=== PATIENT | male | born 1985 | race American Indian/Alaskan Native ===

== ENCOUNTER 2016-12-05 21:06 | Emergency (ER) | payer MEDICAID, OTHER ==
[2016-12-05 21:19] VITALS: BP 158/82
--- NOTE | 2016-12-05 21:38 | EDM.PDOC ---
ED HPI Skin/Rash - General Chief Complaint: Skin Complaint Stated Complaint: BOIL ON LEFT BACK SIDE Time Seen by Provider: 12/05/16 21:31 Source: Reports: Patient, Family, RN notes reviewed History Limitations: Reports: No limitations - History of Present Illness INITIAL COMMENTS - FREE TEXT/NARRATIVE: 31-year-old gentleman presents to the emergency department a complaint of a red painful area of his buttocks sent this for a couple days he denies any fever difficulty with bowel movements - Related Data Allergies Allergy/AdvReac Type Severity Reaction Status Date / Time No Known Allergies Allergy Verified 12/05/16 21:13 Home Meds: Ambulatory Orders Medication Instructions Recorded Confirmed NK [No Known Home Meds] 12/05/16 12/05/16 Past Medical History Musculoskeletal History: Reports: Fracture - Infectious Disease History Infectious Disease History: Reports: Chicken pox Social & Family History - Tobacco Use Smoking Status *Q: Never Smoker Second Hand Smoke Exposure: No - Caffeine Use Caffeine Use: Reports: Energy drinks, Soda - Alcohol Use Days Per Week of Alcohol Use: 0 - Recreational Drug Use Recreational Drug Use: No ED ROS GENERAL - Review of Systems Review Of Systems: See Below Constitutional: Denies: fever Respiratory: Reports: No Symptoms Cardiovascular: Reports: No symptoms Skin: Reports: rash, erythema. Denies: wound ED EXAM, SKIN/RASH Exam: See Below Text/Narrative:: examination of the integument system focused on the gluteal cleft there is an erythematous area approximately size of a softball I cannot appreciate any collection or fluctuant area it is firm it is warm to the touch Exam Limited By: No limitations General Appearance: alert, WD/WN, no apparent distress Course - Vital Signs Last Recorded V/S: Last Vital Signs Temp 99.3 F 12/05/16 21:24 Pulse 96 12/05/16 21:24 Resp 18 12/05/16 21:24 BP 158/82 H 12/05/16 21:24 Pulse Ox 96 12/05/16 21:24 Departure - Departure Time of Disposition: 21:37 Disposition: Home, Self-Care 01 Condition: good Clinical Impression: Boil of buttock Forms: ED Department Discharge Additional Instructions: take full course of antibiotics, if a period develops with drainage that is a good candidate for incision, please return to your primary care or the emergency department for further treatment - Assessment/Plan Plan: Assessment Acuity = acute Site and laterality = Boil buttocks Etiology = suspicious for bacterial cause Manifestations = pain Location of injury = home Lab values = none Plan elected to treat empirically Bactrim DS one tablet by mouth twice a day x10 days debt management counselor him on the possibility of incision and drainage he should try to do warm sitz bath Patient was in agreement with the plan all questions were answered, they were instructed to return to the emergency department or call for worsening symptoms. This note was dictated using [employer] voice recognition software please call with any questions.
[2016-12-05] MEDS ORDERED: Sulfamethoxazole/Trimethoprim 800-160 MG Tab PO ONE (21:50)
== END 2016-12-05 22:08 | disposition home or self-care (01) ==
LOC: JP.ED 21:06
DX: L02.32 Furuncle of buttock (principal)
CPT/HCPCS: 99283; A9270

== ENCOUNTER 2019-10-29 17:05 | Emergency (ER) | payer MEDICAID ==
[2019-10-29 17:17] VITALS: BP 146/96; PULSE 82
[2019-10-29] MEDS ORDERED: Alum Hydrox/Mag Hydrox/Simeth 15 ML, Lidocaine 2% 15 ML PO ONE ×2 (17:34)
--- NOTE | 2019-10-29 17:39 | EDM.PDOC ---
<Saira Rodriguez - Last Filed: 10/29/19 17:34> ED HPI GENERAL MEDICAL PROBLEM - General Chief Complaint: Abdominal Pain Stated Complaint: ABDOMINAL PAIN Time Seen by Provider: 10/29/19 17:34 Source of Information: Reports: Patient History Limitations: Reports: No Limitations - History of Present Illness INITIAL COMMENTS - FREE TEXT/NARRATIVE: pt started on having pain in the epigastruic area. He has been mildly nauseated. He has not vomited. Onset: Other ( started . ) Duration: Hour(s): Location: Reports: Abdomen Associated Symptoms: Reports: Nausea/Vomiting Epigastric Pain Score (Numeric/FACES): 4 - Related Data Allergies Allergy/AdvReac Type Severity Reaction Status Date / Time No Known Allergies Allergy Verified 12/05/16 21:13 Home Meds: Home Meds NK [No Known Home Meds] 12/05/16 [History] Past Medical History - Past Health History Medical/Surgical History: Denies Medical/Surgical History Musculoskeletal History: Reports: Fracture - Infectious Disease History Infectious Disease History: Reports: Chicken Pox Social & Family History - Tobacco Use Smoking Status *Q: Never Smoker - Caffeine Use Caffeine Use: Reports: Energy Drinks, Soda - Recreational Drug Use Recreational Drug Use: No ED ROS GENERAL - Review of Systems Review Of Systems: See Below Constitutional: Reports: No Symptoms HEENT: Reports: No Symptoms Respiratory: Reports: No Symptoms Cardiovascular: Reports: No Symptoms Endocrine: Reports: No Symptoms GI/Abdominal: Reports: Abdominal Pain, Other (pt has pain in the epigastric area and it just won,t go away. He has not vomited. He has been nauseated. Eating seemes to cause pressure and make him more uncomfortablwe. ) : Reports: No Symptoms Musculoskeletal: Reports: No Symptoms Skin: Reports: No Symptoms Neurological: Reports: No Symptoms ED EXAM, GI/ABD - Physical Exam Text/Narrative:: pt arrived with pain in the epigastric area. This started . He states he can not think of anything that started it. Exam Limited By: No Limitations General Appearance: Alert, Moderate Distress Ears: Normal TMs Nose: Normal Inspection Throat/Mouth: Normal Inspection Head: Atraumatic Neck: Normal Inspection Respiratory/Chest: No Respiratory Distress Cardiovascular: Regular Rate, Rhythm GI/Abdominal Exam: Other (mild epigastric tenderness) (Male) Exam: Deferred Rectal (Males) Exam: Deferred Back Exam: Normal Inspection Extremities: Normal Inspection Neurological: Alert, Oriented, Normal Cognition Course - Vital Signs Last Recorded V/S: Last Vital Signs Temp 36.8 C 10/29/19 17:15 Pulse 82 10/29/19 17:15 Resp 16 10/29/19 17:15 BP 146/96 H 10/29/19 17:15 Pulse Ox 96 10/29/19 17:15 - Orders/Labs/Meds Labs: Laboratory Tests 10/29/19 10/29/19 Range/Units 17:56 17:56 WBC 8.0 (4.5-11.0) K/uL RBC 5.25 (4.30-5.90) M/uL Hgb 14.4 (12.0-15.0) g/dL Hct 44.0 (40.0-54.0) % MCV 84 (80-98) fL MCH 27 (27-31) pg MCHC 33 (32-36) % Plt Count 305 (150-400) K/uL Neut % (Auto) 58 (36-66) % Lymph % (Auto) 26 (24-44) % [place] % (Auto) 11 H (2-6) % Eos % (Auto) 5 H (2-4) % Baso % (Auto) 0 (0-1) % Sodium 143 (140-148) mmol/L Potassium 3.5 L (3.6-5.2) mmol/L Chloride 103 (100-108) mmol/L Carbon Dioxide 28 (21-32) mmol/L Anion Gap 15.5 H (5.0-14.0) mmol/L BUN 14 (7-18) mg/dL Creatinine 1.0 (0.8-1.3) mg/dL Est Cr Clr Drug Dosing 122.16 mL/min Estimated GFR (MDRD) > 60 (>60) Glucose 101 (74-106) mg/dL Calcium 8.8 (8.5-10.1) mg/dL Total Bilirubin 0.1 L (0.2-1.0) mg/dL AST 23 (15-37) U/L ALT 42 (12-78) U/L Alkaline Phosphatase 103 (46-116) U/L Total Protein 7.6 (6.4-8.2) g/dL Albumin 3.9 (3.4-5.0) g/dL Globulin 3.7 H (2.3-3.5) g/dL Albumin/Globulin Ratio 1.1 L (1.2-2.2) Lipase 211 (73-393) U/L Meds: Medications Discontinued Medications Generic Name Dose Route Start Last Admin Trade Name Aram PRN Reason Stop Dose Admin Al Hydroxide/Mg Hydroxide 15 0 ml 10/29/19 17:34 10/29/19 17:37 ml/ Lidocaine HCl 15 ml PO 10/29/19 17:35 30 ml ONETIME ONE Administration Departure - Departure Disposition: Home, Self-Care 01 Clinical Impression: Gastritis Qualifiers: Gastritis type: unspecified gastritis Chronicity: acute Gastritis bleeding: without bleeding Qualified Code(s): K29.00 - Acute gastritis without bleeding - Discharge Information Instructions: Gastritis, Adult, [id number] Referrals: PCP,None [Primary Care Provider] - Forms: ED Department Discharge Additional Instructions: Take famotidine 40 mg at bedtime until gone. Take acetaminophen up to 1000 mg every 6 hrs as needed for pain relief. You may use Maalox as needed, best time is after eating. F/U with your doctor in the clinic edil. ? Wednesday. Avoid: ibuprofen, Aleve, aspirin, alcohol, carbonated beverages or tobacco products. Sepsis Event Note - Focused Exam Vital Signs: Vital Signs Temp Pulse Resp BP Pulse Ox 10/29/19 17:15 36.8 C 82 16 146/96 H 96 Date Exam was Performed: 10/29/19 Time Exam was Performed: 17:34 <Gilson Reese - Last Filed: 10/29/19 18:26> ED EXAM, GI/ABD - Physical Exam Exam: See Below Departure - Departure Time of Disposition: 18:22 Condition: Fair - Discharge Information *PRESCRIPTION DRUG MONITORING PROGRAM REVIEWED*: No *COPY OF PRESCRIPTION DRUG MONITORING REPORT IN PATIENT MANDY: No Sepsis Event Note - Focused Exam Date Exam was Performed: 10/29/19 Time Exam was Performed: 18:22
[2019-10-29] MEDS ORDERED: Famotidine 20 MG Tab PO ONE (18:23)
== END 2019-10-29 18:40 | disposition home or self-care (01) ==
LOC: JP.ED 17:05
DX: K29.00 Acute gastritis without bleeding (principal)
CPT/HCPCS: 36415; 80053; 83690; 85025; 99284; A9270; 99283

== ENCOUNTER 2020-05-22 06:28 | Emergency (ER) | payer MEDICAID ==
[2020-05-22 07:04] VITALS: BP 154/91; PULSE 76
--- NOTE | 2020-05-22 07:11 | EDM.PDOC ---
ED HPI GENERAL MEDICAL PROBLEM - General Chief Complaint: Abdominal Pain Stated Complaint: nausa STOMACH PAIN Time Seen by Provider: 05/22/20 07:04 Source of Information: Reports: Patient, RN Notes Reviewed History Limitations: Reports: No Limitations - History of Present Illness INITIAL COMMENTS - FREE TEXT/NARRATIVE: 34-year-old male presents emergency department a complaint of epigastric pain, he states his had it for the last couple of weeks it just is not improving he does have a known history of gastritis has been on omeprazole without any relief, had nausea this morning no vomiting no history of abdominal surgeries is passing gas with normal bowel movements Abdomen Pain Score (Numeric/FACES): 6 - Related Data Allergies Allergy/AdvReac Type Severity Reaction Status Date / Time sulfamethoxazole Allergy Facial Verified 05/22/20 06:42 [From ] Swelling trimethoprim [From ] Allergy Facial Verified 05/22/20 06:42 Swelling Home Meds: Home Meds Omeprazole 40 mg PO ACBREAKFAST 05/22/20 [History] Past Medical History Gastrointestinal History: Reports: Gastritis Musculoskeletal History: Reports: Fracture Neurological History: Reports: Migraines - Infectious Disease History Infectious Disease History: Reports: Chicken Pox Social & Family History - Tobacco Use Smoking Status *Q: Never Smoker - Caffeine Use Caffeine Use: Reports: Soda - Recreational Drug Use Recreational Drug Use: No ED ROS GENERAL - Review of Systems Review Of Systems: See Below Constitutional: Reports: No Symptoms Respiratory: Reports: No Symptoms Cardiovascular: Reports: No Symptoms GI/Abdominal: Reports: Abdominal Pain, Flatus, Nausea. Denies: Constipation, Diarrhea, Vomiting ED EXAM, GI/ABD - Physical Exam Exam: See Below Exam Limited By: No Limitations General Appearance: Alert, WD/WN, No Apparent Distress Respiratory/Chest: No Respiratory Distress GI/Abdominal Exam: Normal Bowel Sounds, Soft, No Organomegaly, No Distention, No Abnormal Bruit, Tender (Epigastric region) Course - Vital Signs Last Recorded V/S: Last Vital Signs Temp 97.6 F 05/22/20 06:39 Pulse 76 05/22/20 06:39 Resp 16 05/22/20 06:39 BP 154/91 H 05/22/20 06:39 Pulse Ox 97 05/22/20 06:39 - Orders/Labs/Meds Labs: Laboratory Tests 05/22/20 05/22/20 Range/Units 07:08 07:18 WBC 6.4 (4.5-11.0) K/uL RBC 5.19 (4.30-5.90) M/uL Hgb 14.0 (12.0-15.0) g/dL Hct 43.6 (40.0-54.0) % MCV 84 (80-98) fL MCH 27 (27-31) pg MCHC 32 (32-36) % Plt Count 327 (150-400) K/uL Neut % (Auto) 58 (36-66) % Lymph % (Auto) 23 L (24-44) % [place] % (Auto) 12 H (2-6) % Eos % (Auto) 7 H (2-4) % Baso % (Auto) 0 (0-1) % Sodium 141 (140-148) mmol/L Potassium 3.9 (3.6-5.2) mmol/L Chloride 105 (100-108) mmol/L Carbon Dioxide 28 (21-32) mmol/L Anion Gap 8.4 (5.0-14.0) mmol/L BUN 16 (7-18) mg/dL Creatinine 1.1 (0.8-1.3) mg/dL Est Cr Clr Drug Dosing 111.05 mL/min Estimated GFR (MDRD) > 60 (>60) Glucose 111 H (74-106) mg/dL Calcium 9.3 (8.5-10.1) mg/dL Total Bilirubin 0.2 D (0.2-1.0) mg/dL AST 30 (15-37) U/L ALT 45 (12-78) U/L Alkaline Phosphatase 106 (46-116) U/L Troponin I < 0.017 (0.000-0.056) ng/mL Total Protein 7.9 (6.4-8.2) g/dL Albumin 4.1 (3.4-5.0) g/dL Globulin 3.8 H (2.3-3.5) g/dL Albumin/Globulin Ratio 1.1 L (1.2-2.2) Lipase 228 (73-393) U/L Meds: Medications Discontinued Medications Generic Name Dose Route Start Last Admin Trade Name Freq PRN Reason Stop Dose Admin Al Hydroxide/Mg Hydroxide 15 0 ml 05/22/20 07:58 09/02/20 08:04 ml/ Lidocaine HCl 15 ml PO 05/22/20 07:59 30 ml ONETIME ONE Administration Departure - Departure Time of Disposition: 08:26 Disposition: Home, Self-Care 01 Condition: Fair Clinical Impression: Abdominal pain Qualifiers: Abdominal location: epigastric Qualified Code(s): R10.13 - Epigastric pain - Discharge Information Instructions: Upper Endoscopy, Adult, Care After, Abdominal Pain, Adult, [id number] Referrals: PCP,None [Primary Care Provider] - Forms: ED Department Discharge Additional Instructions: Increase your omeprazole to twice a day dosing, the outpatient surgery department will contact you for your appointment time with Dr. Dominguez to do the EGD, call or return to the emergency department worsening of symptoms Sepsis Event Note (ED) - Evaluation Sepsis Screening Result: No Definite Risk - Focused Exam Vital Signs: Vital Signs Temp Pulse Resp BP Pulse Ox 05/22/20 06:39 97.6 F 76 16 154/91 H 97 - Assessment/Plan Plan: Assessment Acuity = acute Site and laterality = epigastric abdominal pain Etiology = probable gastroesophageal reflux disease Manifestations = none Location of injury = Home Lab values = CBC, CMP, troponin, lipase all within normal limits Plan He had some relief with a GI cocktail provided in the emergency department call discussed case with Dr. Dominguez general surgery at 820 recommended EGD which was set up for tomorrow morning with Dr. Dominguez he will increase his omeprazole to twice a day dosing This note was dictated using [employer] voice recognition software please call with any questions on syntax or grammar.
[2020-05-22] MEDS ORDERED: Alum Hydrox/Mag Hydrox/Simeth 15 ML, Lidocaine 2% 15 ML PO ONE ×2 (07:58)
== END 2020-05-22 08:34 | disposition home or self-care (01) ==
LOC: JP.ED 06:28
DX: R10.13 Epigastric pain (principal); Z88.2 Allergy status to sulfonamides; Z88.1 Allergy status to other antibiotic agents
CPT/HCPCS: 36415; 80053; 83690; 84484; 85025; 99284; A9270

== ENCOUNTER 2020-05-23 08:14 | Day surgery (SDC) | payer MEDICAID ==
[2020-05-23] MEDS ORDERED: Propofol 200 MG/20 ML SDV ONE (08:39)
[2020-05-23] MEDS ORDERED: Midazolam 1 MG/ML 2 ML SDV ONE (08:39)
[2020-05-23] MEDS ORDERED: fentaNYL 100 MCG/2 ML SDV ONE (08:39)
[2020-05-23] MEDS ORDERED: Dextrose 5%-Lactated Ringers 1,000 ML IV SCH (09:00)
[2020-05-23] MEDS ORDERED: Glycopyrrolate 0.2 MG/ML 2 ML SDV IVPUSH ONE (10:00)
[2020-05-23] MEDS ORDERED: Pantoprazole 40 MG Vial IVPUSH ONE (12:04)
[2020-05-23 13:47] VITALS: PULSE 90
[2020-05-23 13:48] VITALS: BP 130/90
--- NOTE | 2020-05-28 15:23 | OR ---
DATE OF PROCEDURE: 05/23/2020 SURGEON: Rafy Dominguez MD PREOPERATIVE DIAGNOSES: Epigastric discomfort and nausea. POSTOPERATIVE DIAGNOSES: Epigastric pain and nausea associated with very mild distal gastritis. OPERATIVE PROCEDURE: Esophagogastroduodenoscopy with antral biopsies for CLOtest. ANESTHESIA: IV sedation. INDICATIONS FOR PROCEDURE: The patient presents with some ongoing epigastric discomfort. In the past, he has had some slight episodes of heartburn as well. Presently, he is on omeprazole 20 mg a day. Plan is to proceed with upper GI endoscopy with biopsies as indicated. Potential risks including bleeding and perforation were discussed, and the patient wishes to proceed. DETAILS OF PROCEDURE: The patient was taken to the operating room and placed in a left lateral decubitus position. IV sedation was administered after which the upper GI endoscope was passed orally through the length of the esophagus and into the stomach with retroflexion view of the fundus and then through the pyloric channel and into the proximal duodenum. FINDINGS: Included normal hypopharynx, larynx, upper esophageal sphincter, and esophageal body. At the EG junction, no significant hiatal hernia was present. There was no gross inflammation at esophagogastric junction. As one entered the stomach, small amount of retained bile was present. In the antrum, there was a very mild diffuse distal gastritis that was not associated with any erosions or ulcers and it was extremely mild. The pyloric channel and junction of the third and fourth portions of the duodenum were then examined, and no additional pathology was seen. At this point, biopsies were obtained from the antrum and sent for CLOtest for H. pylori. Minimal bleeding from the biopsy site was seen, and the procedure was then concluded. The patient's symptoms do not appear to be well explained by the present findings. Given this, we will schedule the patient for CCK-stimulated HIDA scan to evaluate the gallbladder function. This will be set up for tomorrow. Otherwise, we will maximize the patient's proton pump inhibitor treatment over the next few days and give him Protonix 40 mg IV in the recovery room and then Protonix 40 mg daily and have him stop the omeprazole after being on liquid diet for 3 days. We will see the patient back in the clinic on 05/29/2020 for followup, discussion of the situation based on the updated findings at that date. Rafy Dominguez MD /[id number]
== END 2020-05-23 14:13 | disposition home or self-care (01) ==
LOC: JP.SDS 08:14
PROVIDERS: ATTEND Surgery
DX: K29.70 Gastritis, unspecified, without bleeding (principal); K21.9 Gastro-esophageal reflux disease without esophagitis; Z01.812 Encounter for preprocedural laboratory examination; Z20.828 Contact with and (suspected) exposure to other viral communicable diseases
CPT/HCPCS: 43239; 87081; 87635; C9113; J2250; J2704; J3010; J3490; J7121; U0002

== ENCOUNTER 2020-07-04 08:31 | Day surgery (SDC) | payer MEDICAID, OTHER ==
[~2020-07-04 08:31] MED LIST: Acetaminophen 500 MG Tab PO ONE; Bupivacaine 0.5% 50 ML MDV ONE; Dexamethasone 4 MG/ML SDV ONE; Glycopyrrolate 0.2 MG/ML 5 ML MDV ONE; Lidocaine 1% with EPINEPHrine 1:100,000 50 ML MDV ONE; Neostigmine Methylsulfate 1 MG/ML 5 ML Syringe ONE; Ondansetron 4 MG/2 ML SDV ONE; Propofol 200 MG/20 ML SDV ONE; Rocuronium 50 MG/5 ML Vial ONE; Succinylcholine 200 MG/10 ML MDV ONE; fentaNYL 250 MCG/5 ML SDV ONE
[2020-07-04] MEDS ORDERED: Dextrose 5%-Lactated Ringers 1,000 ML IV SCH (09:00)
[2020-07-04] MEDS ORDERED: Ketamine 500 MG/5 ML MDV IV SCH (10:00)
[2020-07-04] MEDS ORDERED: Ketamine 50 MG in Sodium Chloride 0.9% 49.5 ML IV SCH (10:00)
[2020-07-04] MEDS: cefOXitin 2 GM in Sodium Chloride 0.9% 50 ML IV ONE ×2 (10:43→13:34)
[2020-07-04] MEDS ORDERED: Sugammadex Sodium 200 MG/2 ML VIAL ONE (11:17)
[2020-07-04] MEDS ORDERED: hydrOXYzine HCL 100 MG/2 ML SDV IM ONE (12:00)
[2020-07-04] MEDS ORDERED: Acetaminophen/HYDROcodone 325-5 MG Tab PO PRN (12:17)
[2020-07-04] MEDS ORDERED: Ondansetron 4 MG/2 ML SDV IVPUSH PRN (13:00)
[2020-07-04] MEDS ORDERED: HYDROmorphone 1 MG/ML Syringe IV PRN (13:00)
[2020-07-04] MEDS ORDERED: HYDROmorphone 0.5 MG/0.5 ML Syringe IVPUSH PRN (13:00)
[2020-07-04] MEDS: Dextrose 5%-Lactated Ringers 1,000 ML IV SCH ×2 (13:41→22:42)
[2020-07-04] MEDS ORDERED: Pantoprazole 40 MG Vial IVPUSH SCH (14:00)
[2020-07-04] MEDS: cefOXitin 2 GM in Sodium Chloride 0.9% 50 ML IV SCH ×2 (15:16→22:38)
[2020-07-05] MEDS: cefOXitin 2 GM in Sodium Chloride 0.9% 50 ML IV SCH (03:38)
[2020-07-05 06:58] VITALS: BP 119/66; PULSE 74
--- NOTE | 2020-07-06 10:11 | DISCH ---
ADMISSION DIAGNOSIS: Biliary dyskinesia. DISCHARGE DIAGNOSIS: Laparoscopic cholecystectomy. General anesthesia. Rafy Dominguez MD. Date 07/04/2020. PREOPERATIVE DIAGNOSES: 1. Biliary dyskinesia. 2. Umbilical hernia. OPERATION: Diagnostic laparoscopy with: 1. Cholecystectomy. 2. Repair of incarcerated umbilical hernia. HISTORY: Waylon is a pleasant 34-year-old male with symptoms of biliary dyskinesia. After preoperative evaluation, discussion of possible risks and possible complications, he wished to proceed with surgical procedure. HOSPITAL COURSE: Waylon had his surgery on 07/04/2020. He had no operative complications. On postop day 1, pain was managed, activity was good, afebrile, oral intake adequate, and he was able to be discharged to home. PHYSICAL EXAMINATION: GENERAL: Waylon Smith is a 34-year-old male. VITAL SIGNS: Height 6 feet 2 inches, weight is 257 pounds. TPR 96.2, 74, 16, blood pressure is 119/66. HEENT: Negative. NECK: Supple. HEART: Regular rate and rhythm. LUNGS: Clear. ABDOMEN: Dressings dry and intact. Abdominal binder is on. EXTREMITIES: Without peripheral edema. DISPOSITION: Discharged to home. CONDITION: Stable and improving. FOLLOWUP APPOINTMENT: With Dulce Simpson PA-C, at [facility] on 07/16/2020 at 9 a.m. HOME MEDICATIONS: Tylenol 650 mg every 4 hours p.r.n. pain and he is to resume Protonix 40 mg p.o. daily. DIET: Regular diet. To start out slow and advance as tolerated. Drink 8 to 10 glasses of water a day. ACTIVITY: No lifting greater than 10 pounds for 2 weeks. Walk at least 6 times daily inside your home. Driving: Do not drive for 1 week. Shower/bathing: May shower. DISCHARGE INSTRUCTIONS: Notify provider if any fever, increased pain, nausea, or vomiting. Wound incision care: Keep site clean and dry. Wear abdominal binder for 2 weeks and then as needed. SPECIAL INSTRUCTION: Use incentive spirometer 10 times every hour while awake for 1 week. Work note given that he may return to work on 07/08/2020 with no lifting greater than 10 pounds until 07/18/2020.
--- NOTE | 2020-07-09 12:37 | OR ---
DATE OF PROCEDURE: 07/04/2020 SURGEON: Rafy Dominguez MD PREOPERATIVE DIAGNOSIS: Biliary dyskinesia. POSTOPERATIVE DIAGNOSES: 1. Biliary dyskinesia. 2. Incarcerated umbilical hernia. OPERATIVE PROCEDURES: Diagnostic laparoscopy with: 1. Cholecystectomy (38449). 2. Repair of incarcerated umbilical hernia (04118). ANESTHESIA: General. CERTIFIED MEDICAL TECHNICIAN ASSISTANT: Dulce Simpson PA-C INDICATIONS FOR PROCEDURE: This is a 34-year-old presenting with ongoing postprandial upper abdominal pain and nausea. The patient recently underwent an upper endoscopy followed by maximal treatment with proton pump inhibitors. Minimal findings on the upper endoscopy were noted and no significant improvement is noted with the PPIs. CCK-stimulated HIDA scan was obtained, which showed a marginally low ejection fraction and the CCK injection did cause some reproduction of the patient's nausea, sense of discomfort, and fullness in the upper abdomen. Given this, the plan was to proceed with a laparoscopic cholecystectomy. Potential risks of the procedure including bleeding, infection, injury to common bile duct or other adjacent viscera, possible incomplete relief of symptoms following the procedure were all reviewed, and the patient wishes to proceed. DETAILS OF PROCEDURE: The patient was taken to the operating room and placed in a supine position. After general endotracheal anesthesia was induced, the abdomen was prepped and draped. In the subxiphoid area, a transverse incision was made and the peritoneal cavity entered under direct vision with an Optiview trocar and inflated to 15 mmHg of CO2. Laparoscope was reinserted. No underlying trocar insertion site injuries were seen. Following this, a 12 mm subumbilical trocar was placed along with 5 mm right abdominal trocar. Of note, the patient was noted to have an incarcerated umbilical hernia with preperitoneal fat being incarcerated within the hernia site. The subumbilical trocar was intentionally placed through the center of that area of herniation, thus displacing the preperitoneal fat away from the hernia itself and this was subsequently repaired at the time of abdominal closure. The gallbladder was retracted anteriorly and laterally. It was noted to have a fair bit of edema, particularly in the area of the cystohepatic triangle. Dissection began on the gallbladder neck, continued around the gallbladder neck and cystic duct junction until that area was well delineated along with the adjacent cystic artery. Both structures were then clipped 3 times proximally and once distally and divided. The gallbladder was then dissected off the gallbladder bed using Harmonic scalpel and delivered through the epigastric trocar site. There was noted to be some fine sludge within the gallbladder and cholesterolosis of the gallbladder mucosa on inspection. The area of dissection was then evaluated. No bleeding or bile leaks were seen. A drain was felt not to be necessary. The trocars were then sequentially removed. The umbilical site of the hernia was repaired with a series of laparoscopic sutures placed in the transverse orientation. Once these were in place, the remaining trocars were removed, peritoneal cavity deflated, and those sutures were tied, thus securing the umbilical hernia. Prior to closure, bilateral transversus abdominis plane blocks were placed and the incisions were closed otherwise at the skin level with 4-0 Vicryl stitch and dressing applied. The patient was taken to the recovery room in satisfactory condition. Physician personal banking assistant, Dulce Simpson PA-C, played an essential role in assisting in this case, helping to position the patient, retract structures as needed, as well as suturing and cutting sutures when indicated. Her presence improved patient safety and decreased operative time. Rafy Dominguez MD /[id number]
== END 2020-07-05 09:56 | disposition home or self-care (01) ==
LOC: JP.SDS 08:31 → JP.MS 11:20 → JP.SDS 07-05 09:56
PROVIDERS: ATTEND Surgery
DX: K81.1 Chronic cholecystitis (principal); K42.0 Umbilical hernia with obstruction, without gangrene; G47.33 Obstructive sleep apnea (adult) (pediatric); E66.9 Obesity, unspecified; K21.9 Gastro-esophageal reflux disease without esophagitis; Z68.33 Body mass index [BMI] 33.0-33.9, adult
CPT/HCPCS: 36415; 47562; 49653; 80053; 82247; 83735; 84075; 84100; 85025; 85027; 88304; A9270; C9113; J0171; J0330; J0694; J1100; J2405; J2704; J2710; J2795; J3010; J3410; J3490; J7050; J7121

== ENCOUNTER 2021-10-14 20:35 | Emergency (ER) | payer MEDICAID ==
[2021-10-14 20:49] VITALS: BP 146/94; PULSE 112
[2021-10-14] MEDS ORDERED: Diphtheria,Pertussis(Acell),Tetanus Vaccine 0.5 ML Syringe IM ONE (21:15)
== END 2021-10-14 21:30 | disposition home or self-care (01) ==
LOC: JP.ED 20:35
DX: S91.331A Puncture wound without foreign body, right foot, initial encounter (principal); Z88.1 Allergy status to other antibiotic agents; Z23 Encounter for immunization; W26.8XXA Contact with other sharp object(s), not elsewhere classified, initial encounter; Y99.0 Civilian activity done for income or pay
CPT/HCPCS: 90471; 90715; 99282

== ENCOUNTER 2022-01-06 09:54 | Emergency (ER) | payer OTHER, MEDICAID ==
[2022-01-06 10:07] VITALS: BP 142/97; PULSE 89
[2022-01-06] MEDS ORDERED: Lidocaine 1% 5 ML VIAL INJECT ONE (10:17)
[2022-01-06] MEDS ORDERED: Bacitracin Oint 1 GM U/D Packet TOP ONE (10:17)
== END 2022-01-06 11:16 | disposition home or self-care (01) ==
LOC: JP.ED 09:54
DX: S61.310A Laceration without foreign body of right index finger with damage to nail, initial encounter (principal); Z88.1 Allergy status to other antibiotic agents; Z88.8 Allergy status to other drugs, medicaments and biological substances; W23.1XXA Caught, crushed, jammed, or pinched between stationary objects, initial encounter; Y99.0 Civilian activity done for income or pay
CPT/HCPCS: 12001; 73140-26-F6; 73140-F6; 99282; 99283-25

== ENCOUNTER 2022-09-20 00:13 | Emergency (ER) | payer MEDICAID, OTHER ==
[2022-09-20 00:49] LABS: ESTIMATED GFR 89 mL/min (>60)
[2022-09-20 03:59] VITALS: BP 127/79; PULSE 107
== END 2022-09-20 04:00 | disposition home or self-care (01) ==
LOC: JP.ED 00:13
DX: S70.01XA Contusion of right hip, initial encounter (principal); Z88.1 Allergy status to other antibiotic agents; Z88.8 Allergy status to other drugs, medicaments and biological substances; W13.2XXA Fall from, out of or through roof, initial encounter
CPT/HCPCS: 36415; 73502-RT; 73552-RT; 73700-RT; 80053; 81001; 85025; 99284

== ENCOUNTER 2022-09-20 20:21 | Emergency (ER) | payer MEDICAID ==
[2022-09-20 21:31] VITALS: BP 150/88; PULSE 132
[2022-09-20] MEDS ORDERED: Ibuprofen 600 MG Tab PO ONE (21:54)
[2022-09-20 22:36] LABS: CORONAVIRUS COVID-19 NAA NEGATIVE (NEGATIVE)
== END 2022-09-20 22:51 | disposition home or self-care (01) ==
LOC: JP.ED 20:21
DX: J02.0 Streptococcal pharyngitis (principal); Z88.8 Allergy status to other drugs, medicaments and biological substances; Z88.2 Allergy status to sulfonamides; Z20.822 Contact with and (suspected) exposure to COVID-19
CPT/HCPCS: 0241U; 87880; 99283; A9270

== ENCOUNTER 2024-12-17 07:33 | Emergency (ER) | payer MEDICAID, OTHER ==
[2024-12-17 07:42] VITALS: PULSE 73
[2024-12-17 07:49] VITALS: BP 128/91
== END 2024-12-17 08:07 | disposition home or self-care (01) ==
LOC: JP.ED 07:33
DX: K08.89 Other specified disorders of teeth and supporting structures (principal); F17.210 Nicotine dependence, cigarettes, uncomplicated; Z88.8 Allergy status to other drugs, medicaments and biological substances; Z88.2 Allergy status to sulfonamides
CPT/HCPCS: 99282; 99283

== ENCOUNTER 2025-04-23 15:30 | Emergency (ER) | payer OTHER ==
[2025-04-23] MEDS: Lidocaine 1% with EPINEPHrine 1:100,000 20 ML MDV INJECT ONE (16:17)
[2025-04-23 16:35] VITALS: BP 140/78; PULSE 96
[2025-04-23] MEDS: Bacitracin Oint 1 GM U/D Packet TOP ONE (16:45)
== END 2025-04-23 16:58 | disposition home or self-care (01) ==
LOC: JP.ED 15:30
DX: S51.812A Laceration without foreign body of left forearm, initial encounter (principal); Z88.8 Allergy status to other drugs, medicaments and biological substances; Z90.49 Acquired absence of other specified parts of digestive tract; F17.200 Nicotine dependence, unspecified, uncomplicated; W26.8XXA Contact with other sharp object(s), not elsewhere classified, initial encounter
CPT/HCPCS: 12004; 99282; J2004

== ENCOUNTER 2025-07-22 18:22 | Emergency (ER) | payer SELFPAY ==
[2025-07-22 18:30] VITALS: BP 155/84; PULSE 65
== END 2025-07-22 18:54 | disposition home or self-care (01) ==
LOC: JP.ED 18:22
DX: K03.81 Cracked tooth (principal); K02.9 Dental caries, unspecified; Z88.6 Allergy status to analgesic agent; Z88.2 Allergy status to sulfonamides; Z88.1 Allergy status to other antibiotic agents; I10 Essential (primary) hypertension; Z90.49 Acquired absence of other specified parts of digestive tract; F17.210 Nicotine dependence, cigarettes, uncomplicated
CPT/HCPCS: 99282; A9270